=== PATIENT | female | born 1985 | race Caucasian/White ===

== ENCOUNTER 2016-09-14 13:45 | Observation (INO) | payer OTHER ==
[~2016-09-14] VITALS: Ht 154 cm; Wt 83.9 kg
[2016-09-14] MEDS ORDERED: FOLI1 PO (14:17)
[2016-09-14] MEDS ORDERED: PREN1TAB80 PO (14:17)
[2016-09-14 14:29] VITALS: BP 117/76
[2016-09-14] MEDS ORDERED: FERR134T2 PO (14:31)
[2016-09-14 18:22] LABS: BASOPHILS % (AUTO) 0.3 % (0.0-2.0); EOSINOPHILS % (AUTO) 0.8 % (1.0-6.0); HEMATOCRIT 39.4 % (36-46); HEMOGLOBIN 12.9 g/dL (12.0-16.0); LYMPHOCYTES # (AUTO) 1.8 K/uL (1.0-4.8); LYMPHOCYTES % (AUTO) 11.1 % (22.0-44.0); MEAN CORPUSCULAR HEMOGLOBIN 28.6 pg (26.0-34.0); MEAN CORPUSCULAR HGB CONC 32.8 G/dL (31.0-37.0); MEAN CORPUSCULAR VOLUME 87 fL (80-100); MONOCYTES # (AUTO) 0.6 K/uL (0.1-1.0); MONOCYTES % (AUTO) 3.8 % (2.0-9.0); NEUTROPHILS # (AUTO) 13.5 K/uL (1.8-7.7); RED BLOOD CELL COUNT(AUTO) 4.53 MIL/uL (4.00-5.20); RED CELL DISTRIBUTION WIDTH 14.2 % (11.5-14.5); WHITE BLOOD COUNT (AUTO) 16.1 K/uL (4.5-11.0)
[2016-09-14 18:56] LABS: RUBELLA SCREEN (IGG) IMMUNE (IMMUNE)
== END 2016-09-14 18:15 | disposition home or self-care (01) ==
LOC: 4S 13:45
PROVIDERS: ADMIT Obstetrics & Gynecology; ATTEND Obstetrics & Gynecology
DX: O62.9 Abnormality of forces of labor, unspecified (principal); O26.893 Other specified pregnancy related conditions, third trimester; R10.9 Unspecified abdominal pain; M54.9 Dorsalgia, unspecified; Z3A.38 38 weeks gestation of pregnancy
CPT/HCPCS: 36415; 59025; 76811; 85025; 86592; 86762; 86850; 86900; 87070; 87340; G0378

== ENCOUNTER 2016-09-15 09:32 | Inpatient (IN) | payer OTHER ==
[~2016-09-15] VITALS: Ht 152.4 cm; Wt 86.2 kg
[~2016-09-15 09:32] MED LIST: FERR134T2 PO; FOLI1 PO; PREN1TAB80 PO
[2016-09-15] MEDS ORDERED: OXYTOCIN 30 UNITS/LACT RINGERS 500 ML IV ONE (09:41)
[2016-09-15] MEDS ORDERED: RINGERS SOLUTION,LACTATED 1,000 ML IV PRN (09:41)
[2016-09-15] MEDS ORDERED: FentaNYL CITRATE-PF 100 MCG/2 ML VIAL IVP PRN (09:45)
[2016-09-15] MEDS ORDERED: CITRIC ACID/SODIUM CITRATE 30 ML SOLUTION UDCUP PO PRN (09:45)
[2016-09-15] MEDS ORDERED: AMPICILLIN SODIUM 2 GM/NS 100 ML IV ONE (09:45)
[2016-09-15] MEDS ORDERED: METOCLOPRAMIDE HCL 5 MG/ML 2 ML VIAL IVP PRN (09:45)
[2016-09-15 10:04] VITALS: BP 115/67
[2016-09-15] MEDS: RINGERS SOLUTION,LACTATED 1,000 ML IV SCH ×3 (10:16→20:56)
[2016-09-15] MEDS ORDERED: LIDOCAINE HCL 2%/EPI 1:200,000/PF 10 ML VIAL ONE (10:22)
[2016-09-15] MEDS ORDERED: FentaNYL/BUPIV 0.125%/NS/PF 200 ML ED PRN (10:24)
[2016-09-15] MEDS ORDERED: NALBUPHINE HCL 10 MG/ML VIAL IVP PRN (10:30)
[2016-09-15] MEDS ORDERED: ONDANSETRON HCL 4 MG/2 ML VIAL IVP PRN (10:30)
[2016-09-15] MEDS ORDERED: DiphenhydrAMINE HCL 50 MG/ML VIAL IVP PRN (10:30)
[2016-09-15] MEDS ORDERED: PROMETHAZINE HCL 25 MG/ML VIAL IM PRN (10:30)
[2016-09-15 10:37] LABS: GLUCOSE COMMENT 1 Doctor Notified; GLUCOSE,POINT OF CARE 132 MG/DL (70-110)
[2016-09-15 11:03] LABS: BASOPHILS # (AUTO) 0.01 K/uL (0.00-0.20); EOSINOPHILS % (AUTO) 0.01 % (1.0-6.0); HEMATOCRIT 38.6 % (36-46); HEMOGLOBIN 12.9 g/dL (12.0-16.0); LYMPHOCYTES # (AUTO) 0.9 K/uL (1.0-4.8); LYMPHOCYTES % (AUTO) 4.3 % (22.0-44.0); MEAN CORPUSCULAR HEMOGLOBIN 29.2 pg (26.0-34.0); MEAN CORPUSCULAR HGB CONC 33.5 G/dL (31.0-37.0); MEAN CORPUSCULAR VOLUME 87 fL (80-100); MONOCYTES # (AUTO) 0.6 K/uL (0.1-1.0); MONOCYTES % (AUTO) 3.2 % (2.0-9.0); NEUTROPHILS # (AUTO) 18.4 K/uL (1.8-7.7); NEUTROPHILS % (AUTO) 92.5 % (40.0-70.0); PLATELET COUNT (AUTO) 245 K/uL (150-450); RED BLOOD CELL COUNT(AUTO) 4.44 MIL/uL (4.00-5.20); RED CELL DISTRIBUTION WIDTH 14.8 % (11.5-14.5); WHITE BLOOD COUNT (AUTO) 19.9 K/uL (4.5-11.0)
[2016-09-15 11:15] LABS: RBC MORPHOLOGY COMMENT NORMAL RBC MORPH
[2016-09-15] MEDS: AMPICILLIN SODIUM 1 GM/NS 50 ML IV SCH ×2 (13:39→17:28)
[2016-09-15] MEDS ORDERED: FentaNYL CITRATE-PF 100 MCG/2 ML VIAL ONE ×2 (16:11→18:22)
[2016-09-15] MEDS: OXYGEN THERAPY IH SCH ×2 (17:29→20:56)
[2016-09-15] MEDS ORDERED: GENTAMICIN 120 MG/NACL ISO-OSM 100 ML IV ONE (18:15)
[2016-09-15] MEDS ORDERED: AMPICILLIN SODIUM 2 GM/NS 100 ML IV SCH (22:00)
[2016-09-15] MEDS ORDERED: RINGERS SOLUTION,LACTATED 1,000 ML IV ONE (23:22)
[2016-09-15] MEDS ORDERED: OxyCODONE HCL/ACETAMINOPHEN 5-325 MG TABLET PO PRN (23:30)
[2016-09-15] MEDS ORDERED: LANOLIN 7 GM OINTMENT TP PRN (23:30)
[2016-09-15] MEDS ORDERED: MEASLES/MUMPS/RUBELLA VACCINE, LIVE 0.5 ML/VIAL SQ ONE (23:30)
[2016-09-16] MEDS: IBUPROFEN 600 MG TABLET PO PRN ×3 (01:18→16:36)
[2016-09-16] MEDS: GLYCERIN/WITCH HAZEL LEAF 40 PADS JAR TP PRN ×2 (01:18→08:59)
[2016-09-16] MEDS: BENZOCAINE 20%/MENTHOL 56 GM SPRAY CANISTER TP PRN ×2 (01:18→08:59)
[2016-09-16 08:49] LABS: BASOPHILS % (AUTO) 0.3 % (0.0-2.0); EOSINOPHILS % (AUTO) 0.3 % (1.0-6.0); HEMATOCRIT 36.2 % (36-46); HEMOGLOBIN 12.1 g/dL (12.0-16.0); LYMPHOCYTES # (AUTO) 1.3 K/uL (1.0-4.8); LYMPHOCYTES % (AUTO) 6.6 % (22.0-44.0); MEAN CORPUSCULAR HEMOGLOBIN 29.2 pg (26.0-34.0); MEAN CORPUSCULAR HGB CONC 33.4 G/dL (31.0-37.0); MEAN CORPUSCULAR VOLUME 87 fL (80-100); MONOCYTES # (AUTO) 0.3 K/uL (0.1-1.0); MONOCYTES % (AUTO) 1.3 % (2.0-9.0); RED BLOOD CELL COUNT(AUTO) 4.14 MIL/uL (4.00-5.20); RED CELL DISTRIBUTION WIDTH 14.4 % (11.5-14.5); WHITE BLOOD COUNT (AUTO) 19.6 K/uL (4.5-11.0)
[2016-09-16 08:51] LABS: NEUTROPHILS % (AUTO) 91.5 % (40.0-70.0)
[2016-09-16] MEDS: MAGNESIUM HYDROXIDE SUSPENSION 30 ML UDCUP PO SCH ×2 (08:59→21:23)
[2016-09-16 09:58] LABS: RBC MORPHOLOGY COMMENT NORMAL RBC MORPH
[2016-09-16] MEDS: OxyCODONE HCL/ACETAMINOPHEN 5-325 MG TABLET PO PRN (16:35)
[2016-09-17] MEDS: IBUPROFEN 600 MG TABLET PO PRN (05:15)
[2016-09-17] MEDS ORDERED: DSS100 PO (08:56)
[2016-09-17] MEDS ORDERED: IBUP-1547 PO (08:56)
[2016-09-17] MEDS: OxyCODONE HCL/ACETAMINOPHEN 5-325 MG TABLET PO PRN (08:58)
== END 2016-09-17 09:00 | disposition home or self-care (01) | DRG 775 ==
LOC: 4S 09:32 → UNDOADMIN 09:51 → PREOBSVTOIN 09-21 09:47
PROVIDERS: ADMIT Obstetrics & Gynecology; ATTEND Obstetrics & Gynecology
PROC: 10E0XZZ Delivery of Products of Conception, External Approach (ICD-10-PCS; principal; 2016-09-15)
PROC: 0HQ9XZZ Repair Perineum Skin, External Approach (ICD-10-PCS; 2016-09-15)
PROC: 00HU33Z Insertion of Infusion Device into Spinal Canal, Percutaneous Approach (ICD-10-PCS; 2016-09-15)
PROC: 3E0R3CZ (ICD-10-PCS; 2016-09-15)
PROC: 10907ZC Drainage of Amniotic Fluid, Therapeutic from Products of Conception, Via Natural or Artificial Opening (ICD-10-PCS; 2016-09-15)
DX: O41.1230 Chorioamnionitis, third trimester, not applicable or unspecified (principal); O70.0 First degree perineal laceration during delivery; Z3A.39 39 weeks gestation of pregnancy; Z37.0 Single live birth
CPT/HCPCS: 82947; 82948; 82962; 83036; J0290; J1580; J2590; J3010; J3490; J7120